=== PATIENT | male | born 1990 | race African-American/Black ===

== ENCOUNTER 2019-01-12 20:25 | Emergency (ER) | payer OTHER ==
[~2019-01-12] VITALS: Ht 172.7 cm; Wt 63.5 kg
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
[2019-01-12] MEDS ORDERED: ZOFRAN4 MG ORAL (21:33)
[2019-01-12 22:00] VITALS: BP 126/64
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
[2019-01-12 22:15] VITALS: BP 126/64
--- NOTE | 2019-01-13 10:51 | Diagnostic Imaging Report ---
Indication: Abdominal pain Technique: Continuous helical transaxial imaging of the abdomen and pelvis was obtained from the lung bases to the pubic symphysis. No intravenous contrast was administered. Coronal 2-D reformats were also obtained. Automatic Exposure Control was utilized. Total Dose length Product (DLP): 508.[address] Dose Index Volume (CTDIvol): 10.04 mGy Comparison: none Findings: The lung bases are clear. No nephrolithiasis or hydronephrosis identified although there is slight increased density of the renal medulla. Appendix is normal and retrocecal in location. Bowel gas pattern is nonobstructive. There is no free fluid. There is no hydronephrosis. Gallbladder is unremarkable. IMPRESSION: No acute findings. Slightly increased density of the renal medulla bilaterally. Consider nephrocalcinosis The CT scanner at [facility] is accredited by the [employer] and the scans are performed using dose optimization techniques as appropriate to a performed exam including Automatic Exposure control.
--- NOTE | 2019-01-13 11:47 | Diagnostic Imaging Report ---
Indication: Headache Technique: Contiguous 5 mm thick transaxial imaging of the head obtained in a Siem[employer] Sensation [address] scanner. Soft tissue and bone windows generated. Automatic Exposure Control was utilized. Total Dose length Product (DLP): 1333.[address] Dose Index Volume (CTDIvol): 70.38 mGy Comparison: none Findings: The size and configuration of the cortical sulci, basal cisterns, and ventricles are within normal limits for age. There is no mass effect, midline shift, or edema identified. There is no evidence of acute hemorrhage or abnormal intra-axial or extra-axial fluid collections. The bones and soft tissues are unremarkable. Impression: No mass effect, edema or acute bleed. The CT scanner at [facility] is accredited by the [employer] and the scans are performed using dose optimization techniques as appropriate to a performed exam including Automatic Exposure control.
== END 2019-01-12 22:15 ==
LOC: EDBD 20:25 → EMR 21:00
DX: R11.2 Nausea with vomiting, unspecified (principal)
CPT/HCPCS: 70450; 74176; 99284